=== PATIENT | female | born 1980 | race Caucasian/White ===

== ENCOUNTER 2016-10-17 23:38 | Emergency (ER) | payer SELFPAY ==
--- NOTE | 2016-10-18 06:53 | ER ---
ADMIT: 10/17/2016 RM/LOC: ER [facility] MR#: [id number] [facility] [id number] [address] [place] [address] Emergency Room Report SEX: F AGE: 36 : 1980 DATE: 10/17/2016 The patient is a 36-year-old female, complaining of 12-hour history of chest tightness associated with cough, shortness of breath. Exam remarkable for nontoxic, obese female, diminished breath sounds. Responded well to DuoNeb and prednisone. Home with albuterol MDI with AeroChamber, doxycycline 100 mg b.i.d. x7 days after 200 mg load in department, prednisone 40 mg daily x4 days after 60 mg load in department. Follow up with Dr. Tay as needed. Michael Van MD/ alexandrea JOB #: [id number] CC: Michael Van MD, Attending Physician Rios Prado MD, Family Physician Brandan Tay,
== END 2016-10-18 00:50 | disposition home or self-care (01) ==
LOC: ER 23:38
DX: J45.909 Unspecified asthma, uncomplicated (principal); F17.210 Nicotine dependence, cigarettes, uncomplicated; Z98.890 Other specified postprocedural states; Z90.49 Acquired absence of other specified parts of digestive tract; E66.9 Obesity, unspecified; Z88.5 Allergy status to narcotic agent